=== PATIENT | female | born 1995 | race Caucasian/White ===

== ENCOUNTER 2023-12-25 07:27 | Inpatient (IN) | payer BC ==
[2023-12-25] MEDS: Betamethasone Acetate/Betamethasone Sod Phosphate 6 MG/1 ML MDV IM ONE (08:35)
[2023-12-25] MEDS: Azithromycin 250 MG Tab PO ONE (08:52)
[2023-12-25] MEDS ORDERED: Calcium Gluconate 10% 1 GM/10 ML SDV IVPUSH PRN (08:57)
[2023-12-25] MEDS: Ampicillin 2 GM in Sodium Chloride 0.9% 100 ML IV ONE (09:30)
[2023-12-25] MEDS: Lactated Ringers 1,000 ML IV SCH (09:30)
[2023-12-25] MEDS: Magnesium Sulfate/Water Premix 4 GM in Premix Bag 1 BAG IV ONE (09:40)
[2023-12-25] MEDS ORDERED: Sodium Chloride 0.9% 10 ML Syringe FLUSH PRN (09:43)
[2023-12-25] MEDS ORDERED: Sodium Chloride 0.9% 2.5 ML Syringe FLUSH PRN (09:43)
[2023-12-25] MEDS ORDERED: Sodium Chloride 0.9% 20 ML SDV IV PRN (09:43)
[2023-12-25] MEDS ORDERED: Citric Acid/Sodium Citrate Solution 30 ML Cup PO ONE (09:43)
[2023-12-25] MEDS ORDERED: Oxytocin/0.9 % Sodium Chloride 30 UNIT/500 ML BAG IV SCH (09:45)
[2023-12-25] MEDS: Magnesium Sulfate/Water Premix 20 GM/500 ML BAG IV SCH (10:00)
[2023-12-25 10:06] LABS: HEMATOCRIT 36.3 % (37.0-47.0); HEMOGLOBIN 12.7 g/dL (12.0-16.0); MEAN CORPUSCULAR HEMOGLOBIN 33.4 pg (28.0-32.0); MEAN CORPUSCULAR VOLUME 95.5 fL (83.0-99.0); MEAN PLATELET VOLUME 9.2 fL (9.4-12.3); PLATELET COUNT,PLT 229 K/uL (150-400); WHITE BLOOD CELL COUNT,WBC 10.55 K/uL (3.9-11.3)
[2023-12-25] MEDS ORDERED: Morphine PF 10 MG/10 ML SDV ONE (12:39)
[2023-12-25] MEDS ORDERED: ceFAZolin 1 GM Vial ONE ×2 (12:39→13:07)
[2023-12-25] MEDS ORDERED: Ketorolac 30 MG/ML SDV ONE (12:39)
[2023-12-25] MEDS ORDERED: Bupivacaine 0.25% 30 ML SDV ONE (12:39)
[2023-12-25] MEDS ORDERED: Ropivacaine 0.5% 5 MG/ML 30 ML SDV ONE (12:39)
[2023-12-25] MEDS ORDERED: Oxytocin 10 Units/1 ML SDV ONE (12:39)
[2023-12-25] MEDS ORDERED: fentaNYL 100 MCG/2 ML SDV ONE (12:39)
[2023-12-25] MEDS ORDERED: EPINEPHrine 1 MG/1 ML Amp ONE (12:39)
[2023-12-25] MEDS ORDERED: Ondansetron 4 MG/2 ML SDV ONE (12:39)
[2023-12-25] MEDS ORDERED: Ampicillin 1 GM in Sodium Chloride 0.9% 50 ML IV SCH (13:00)
[2023-12-25] MEDS ORDERED: Phenylephrine HCl In 0.9% NaCl 1 MG/10 ML Syringe ONE ×2 (13:02→13:28)
[2023-12-25] MEDS ORDERED: Bisacodyl 10 MG Supp RECTAL PRN (14:05)
[2023-12-25] MEDS ORDERED: Oxytocin 10 Units/1 ML SDV IM PRN (14:05)
[2023-12-25] MEDS ORDERED: Methylergonovine 0.2 MG/1 ML Amp IM PRN (14:05)
[2023-12-25] MEDS ORDERED: diphenhydrAMINE 50 MG/ML SDV IVPUSH PRN ×2 (14:05→14:19)
[2023-12-25] MEDS ORDERED: Misoprostol 200 MCG Tab RECTAL PRN (14:05)
[2023-12-25] MEDS ORDERED: oxyCODONE 5 MG Tab PO PRN (14:05)
[2023-12-25] MEDS ORDERED: Ondansetron 4 MG/2 ML SDV IVPUSH PRN ×3 (14:05→14:19)
[2023-12-25] MEDS ORDERED: Lactated Ringers 1,000 ML IV SCH (14:15)
[2023-12-25] MEDS ORDERED: Acetaminophen/oxyCODONE 325-5 MG Tab PO PRN (14:19)
[2023-12-25] MEDS ORDERED: Phenylephrine HCl In 0.9% NaCl 1 MG/10 ML Syringe IVPUSH PRN (14:19)
[2023-12-25] MEDS ORDERED: Nalbuphine 10 MG/1 ML Vial IVPUSH PRN (14:19)
[2023-12-25] MEDS ORDERED: fentaNYL 50 MCG/ML SDV IVPUSH PRN ×2 (14:19)
[2023-12-25] MEDS ORDERED: HYDROmorphone 1 MG/ML Syringe IVPUSH PRN (14:19)
[2023-12-25] MEDS ORDERED: Naloxone 0.4 MG/ML SDV IVPUSH PRN (14:19)
[2023-12-25] MEDS ORDERED: Albuterol 0.083% 2.5 MG/3 ML Neb Soln NEB PRN (14:19)
[2023-12-25] MEDS ORDERED: Metoclopramide 10 MG/2 ML SDV IVPUSH PRN (14:19)
[2023-12-25] MEDS ORDERED: droPERidol 5 MG/2 ML SDV IVPUSH PRN (14:19)
[2023-12-25] MEDS ORDERED: Morphine 2 MG/ML SYRINGE IVPUSH PRN (14:19)
[2023-12-25] MEDS ORDERED: ePHEDrine 50 MG/ML SDV IM PRN (14:21)
[2023-12-25] MEDS ORDERED: Bupivacaine 0.5% 10 ML SDV INJECT ONE (14:21)
[2023-12-25 14:59] LABS: PH,UMBILICAL ARTERIAL 7.28 (7.18-7.38); PH,UMBILICAL VENOUS 7.358 (7.25-7.45)
[2023-12-25] MEDS: Acetaminophen 1,000 MG in Premix Bag 1 BAG IV SCH (15:50)
[2023-12-25] MEDS: Ketorolac 30 MG/ML SDV IVPUSH SCH (18:13)
[2023-12-25] MEDS: Docusate Sodium 100 MG Cap PO SCH (21:42)
[2023-12-25] MEDS: Tranexamic Acid 1,000 MG in Sodium Chloride 0.9% 100 ML IV ONE (23:45)
[2023-12-26] MEDS: Lanolin 100% Cream 7 GM Tube TOP PRN (03:56)
[2023-12-26 06:34] LABS: HEMATOCRIT 30.4 % (37.0-47.0); HEMOGLOBIN 10.6 g/dL (12.0-16.0)
[2023-12-26 08:12] LABS: GROUP B STREP BY PCR NEGATIVE (NEGATIVE)
[2023-12-26] MEDS ORDERED: Ibuprofen 800 MG Tab PO PRN (14:05)
[2023-12-26] MEDS: Acetaminophen 500 MG Tab PO PRN (15:59)
== END 2023-12-26 17:45 | disposition home or self-care (01) | DRG 540 ==
LOC: MW.OB 07:27 → OBSVTOIN 09:44 → MW.OB 19:24
PROVIDERS: ADMIT Obstetrics & Gynecology; ATTEND Obstetrics & Gynecology
PROC: 10D00Z1 Extraction of Products of Conception, Low, Open Approach (ICD-10-PCS; principal; 2023-12-25 13:00)
DX: O42.013 Preterm premature rupture of membranes, onset of labor within 24 hours of rupture, third trimester (principal); O24.429 Gestational diabetes mellitus in childbirth, unspecified control; Z3A.33 33 weeks gestation of pregnancy; Z37.0 Single live birth; O77.0 Labor and delivery complicated by meconium in amniotic fluid; O60.14X0 Preterm labor third trimester with preterm delivery third trimester, not applicable or unspecified
CPT/HCPCS: 36415; 76815; 76815-26; 82803; 82947; 84112; 85014; 85018; 85027; 86592; 86850; 86900; 86901; 87653; A9270-GY; J0131; J0171; J0290; J0665; J0690; J0702; J1100; J1885; J2274; J2371; J2405; J2590; J2795; J3010; J3475; J3490; J7120